=== PATIENT | male | born 1985 | race Hispanic/Latino ===

== ENCOUNTER 2020-10-11 22:31 | Emergency (ER) | payer SELFPAY ==
[2020-10-11] MEDS ORDERED: KETOROLAC 30 MG/ML INJ ONE (22:52)
[2020-10-11] MEDS ORDERED: NA CHLORIDE 0.9% 1,000 ML ONE (22:52)
--- NOTE | 2020-10-11 23:01 | ER ---
Nurse's Notes [facility] Name: Mando James Age: 35 yrs Sex: Male : 1985 Arrival Date: 10/11/2020 Time: 22:35 Bed 8 Private MD: Diagnosis: Presentation: 10/11 22:36 Chief complaint: EMS states: police called us, saying that he has mid sternal chest mg2 pain radiating to the left side. was seen in [place] 3 days ago for the same thing. NSR on monitor,. he was on police custody and he has a warrant in [place]. Coronavirus screen: Client denies travel out of the [place] in the last 14 days. At this time, the client does not indicate any symptoms associated with coronavirus-19. Ebola Screen: No symptoms or risks identified at this time. Initial Sepsis Screen: Does the patient meet any 2 criteria? No. Patient's initial sepsis screen is negative. Does the patient have a suspected source of infection? No. Patient's initial sepsis screen is negative. Risk Assessment: Do you want to hurt yourself or someone else? Patient reports no desire to harm self or others. Onset of symptoms was October 11, 2020. 22:36 Method Of Arrival: EMS: [facility] mg2 22:36 Acuity: SINA 3 mg2 22:36 Care prior to arrival: Medication(s) given: ASA, 325 mg, Nitroglycerin, 0.4 mg SL. mg2 Triage Assessment: 22:36 General: Appears in no apparent distress. comfortable, Behavior is calm, cooperative. mg2 22:36 Pain: Complains of pain in chest. EENT: No signs and/or symptoms were reported mg2 regarding the EENT system. Neuro: Level of Consciousness is awake, alert, obeys commands, Oriented to person, place, time, situation. Cardiovascular: Capillary refill < 3 seconds Patient's skin is warm and dry. Respiratory: Airway is patent Respiratory effort is even, unlabored, Respiratory pattern is regular, symmetrical. GI: No signs and/or symptoms were reported involving the gastrointestinal system. : No signs and/or symptoms were reported regarding the genitourinary system. Derm: Skin is intact, is healthy with good turgor, Skin is pink, warm \\T\\ dry. normal. Musculoskeletal: Circulation, motion, and sensation intact. Capillary refill < 3 seconds. Historical: - Home Meds: 22:42 Clonazepam Oral [Active]; mg2 - PMHx: 22:42 mitral valve prolapse; Hypertension; Anxiety; mg2 - Immunization history:: Flu vaccine status is unknown. - Social history:: Smoking status: unknown. Screenin:36 Abuse screen: Denies threats or abuse. Denies injuries from another. Tuberculosis mg2 screening: No symptoms or risk factors identified. 22:36 Nutritional screening: No deficits noted. mg2 Assessment: 22:58 Reassessment: Pt refused treatment stated " really don't need all the labs and stuff I ea just want to go" Provider notified. Pt verbalized the understanding of risk with leaving AMA. Pt signed AMA paper. Left ED ambulatory tolerating well. 22:58 Reassessment: patient refused treatment. he said he feels better after the EMS gave him mg2 the medicine. he signed the AMA form , risk explained and provider informed as well. Vital Signs: 22:36 BP 148 / 104; Pulse 95; Resp 18; Temp 98; Pulse Ox 99% on R/A; mg2 ED Course: 22:35 Patient arrived in ED. sg 22:35 Herminio Jacques PA is PHCP. cp 22:35 Andrey Reid MD is Attending Physician. cp 22:36 Ha Evans, SUSI is Primary Nurse. mg2 22:36 Patient has correct armband on for positive identification. mg2 22:36 ekg monitor tech on. Pulse ox on. NIBP on. mg2 22:36 No provider procedures requiring assistance completed. mg2 22:36 Patient did not have IV access during this emergency room visit. mg2 22:41 Triage completed. mg2 22:42 Arm band placed on. mg2 22:50 XRAY Chest (1 view) In Process Unspecified. EDMS Administered Medications: 22:57 Not Given (Patient Refused): TORadol - Ketorolac 15 mg IVP once ea 22:58 Not Given (Patient Refused): NS 0.9% 1000 ml IV at 1 bolus Per protocol; 1000 mL bolus ea Outcome: 22:59 AMA AMA form signed ea 22:59 Condition: stable mg2 23:11 Patient left the ED. mg2 Signatures: Dispatcher [employer] EDMS Ian Calvert RN RN Herminio Jacques PA PA cp Antunez, Elena, RN RN ea Ha Evans, SUSI RN mg2 Corrections: (The following items were deleted from the chart) 22:58 22:36 BP 148 / 104; Pulse 95bpm; Resp 18bpm; Pulse Ox 99% RA; mg2 mg2
--- NOTE | 2020-10-11 23:12 | EDPHYS ---
Physician Documentation [facility] Name: Mando James Age: 35 yrs Sex: Male : 1985 Arrival Date: 10/11/2020 Time: 22:35 Bed 8 Private MD: ED Physician Andrey Reid HPI: 10/11 22:40 This 35 yrs old Male presents to ER via EMS with complaints of Chest Pain. cp 22:40 The patient or guardian reports chest pain that is located primarily in the anterior cp chest wall, left. The pain radiates to left back. 22:40 Associated signs and symptoms: Pertinent negatives: abdominal pain, cough, diaphoresis, cp lower extremity pain, lower extremity swelling, shortness of breath, syncope. The chest pain is described as sharp. Duration: The patient or guardian reports a single episode, that is still ongoing, and unchanged. Patient reports constant left side chest pain that became worse today after being arrested. Patient reports he always has chest pain due to history of mitral valve prolapse. Historical: - Home Meds: 22:42 Clonazepam Oral [Active]; mg2 - PMHx: 22:42 mitral valve prolapse; Hypertension; Anxiety; mg2 - Immunization history:: Flu vaccine status is unknown. - Social history:: Smoking status: unknown. ROS: 22:45 Constitutional: Negative for body aches, chills, fever, poor PO intake. cp 22:45 Eyes: Negative for injury, pain, redness, and discharge. cp 22:45 ENT: Negative for ear pain, sore throat, difficulty swallowing, difficulty handling secretions. 22:45 Cardiovascular: Positive for chest pain, Negative for edema, palpitations. 22:45 Respiratory: Negative for cough, shortness of breath, wheezing. 22:45 Abdomen/GI: Negative for abdominal pain, nausea, vomiting, and diarrhea. 22:45 Back: Positive for radiated pain, of the left subscapular area. 22:45 Skin: Negative for rash. 22:45 Neuro: Negative for altered mental status, headache, syncope, weakness. 22:45 All other systems are negative. Exam: 22:47 Constitutional: The patient appears in no acute distress, alert, awake, cp non-diaphoretic, well developed, well nourished. 22:47 Head/Face: Normocephalic, atraumatic. cp 22:47 Eyes: Periorbital structures: appear normal, Conjunctiva: normal, no exudate, no injection, Lids and lashes: appear normal, bilaterally. 22:47 ENT: External ear(s): are unremarkable, Nose: is normal, Mouth: Lips: moist, Oral mucosa: moist, Posterior pharynx: Airway: no evidence of obstruction, patent. 22:47 Neck: ROM/movement: is normal, is supple, without pain, no range of motions limitations. 22:47 Chest/axilla: Inspection: normal, Palpation: is normal, no crepitus, no tenderness. 22:47 Cardiovascular: Rate: normal, Rhythm: regular, Heart sounds: murmur, not appreciated, JVD: is not appreciated. 22:47 Respiratory: the patient does not display signs of respiratory distress, Respirations: normal, no use of accessory muscles, no retractions, labored breathing, is not present, Breath sounds: are clear throughout, no decreased breath sounds, no stridor, no wheezing. 22:47 Abdomen/GI: Inspection: abdomen appears normal, Palpation: abdomen is soft and non-tender, in all quadrants. 22:47 Back: ROM is normal, CVA tenderness, is absent. 22:47 Neuro: Orientation: to person, place \T\ time. Mentation: is normal, Cerebellar function: is grossly normal, Motor: moves all fours, strength is normal, Sensation: is normal. Vital Signs: 22:36 BP 148 / 104; Pulse 95; Resp 18; Temp 98; Pulse Ox 99% on R/A; mg2 MDM: 22:37 Patient medically screened. cp 22:49 Differential diagnosis: abnormal EKG, acute myocardial infarction, acute pericarditis, cp pericarditis, pleurisy, pneumonia, pneumothorax, pulmonary embolus. 10/11 22:37 Order name: XRAY Chest (1 view) 10/11 22:37 Order name: EKG; Complete Time: 22:38 10/11 22:37 Order name: Cardiac monitoring 10/11 22:37 Order name: EKG - Nurse/Tech 10/11 22:37 Order name: IV Saline Lock 10/11 22:37 Order name: Labs collected and sent 10/11 22:37 Order name: O2 Per Protocol 10/11 22:37 Order name: O2 Sat Monitoring cp Administered Medications: 22:57 Not Given (Patient Refused): TORadol - Ketorolac 15 mg IVP once ea 22:58 Not Given (Patient Refused): NS 0.9% 1000 ml IV at 1 bolus Per protocol; 1000 mL bolus ea Disposition: 10/12 07:23 Co-signature as Attending Physician, Andrey Reid MD. [email or web address] Disposition: 10/11/20 23:00 Patient has left against medical advice. - Patients states they are going to Home. - Condition is Stable. Signatures: Dispatcher [employer] EDMS Herminio Jacques PA PA cp Antunez, Elena, RN RN ea Gardose, Michele, RN RN mg2 Holmes, Maurice, MD MD [email or web address] Corrections: (The following items were deleted from the chart) 10/11 23:11 23:00 10/11/2020 23:00 Patients has left against medical advice. Patient states they mg2 are going to Home. Condition is Stable. ea
--- NOTE | 2020-10-12 00:12 | RAD REPORT ---
EXAM DESCRIPTION: Beatriz Single View10/11/2020 10:50 pm CLINICAL HISTORY: Chest pain COMPARISON: none FINDINGS: The lungs appear clear of acute infiltrate. The heart is normal size IMPRESSION: No acute abnormalities displayed
[2020-10-12 03:34] VITALS: BP 148/104; TEMP 98; O2SAT 99
== END 2020-10-11 23:11 | disposition left against medical advice (07) ==
LOC: ER 22:31
DX: R07.89 Other chest pain (principal); I10 Essential (primary) hypertension; I34.1 Nonrheumatic mitral (valve) prolapse; F41.9 Anxiety disorder, unspecified
CPT/HCPCS: 71045; 99284; J7030